=== PATIENT | female | born 1960 | race Caucasian/White ===

== ENCOUNTER → 2020-08-08 | Outpatient (CLI) | payer MEDICAID, MEDICARE | END | disposition home or self-care (01) | LOC: CFH 09:00 | PROVIDERS: ATTEND Nurse Practitioner | DX: Z12.31 Encounter for screening mammogram for malignant neoplasm of breast (principal); Z12.2 Encounter for screening for malignant neoplasm of respiratory organs; M51.34 Other intervertebral disc degeneration, thoracic region; Z87.891 Personal history of nicotine dependence | CPT/HCPCS: 77063; 77067; G0297 ==